=== PATIENT | female | born 1990 | race Caucasian/White ===

== ENCOUNTER 2016-07-02 11:22 | Emergency (ER) | payer SELFPAY ==
[2016-07-02] MEDS ORDERED: PROZAC20 M3 PO (11:33)
[2016-07-02] MEDS ORDERED: XANAX1 M1 PO (11:33)
[2016-07-02] MEDS ORDERED: TRAMADOL HCL50 M2 PO (12:58)
[2016-07-02] MEDS ORDERED: NORCO 5-325 TA1 EACH PO (13:13)
== END 2016-07-02 13:16 ==
LOC: EDMED 11:22
DX: S80.01XA Contusion of right knee, initial encounter (principal); F17.210 Nicotine dependence, cigarettes, uncomplicated; W10.9XXA Fall (on) (from) unspecified stairs and steps, initial encounter; Y92.019 Unspecified place in single-family (private) house as the place of occurrence of the external cause

== ENCOUNTER 2016-08-03 19:48 | Emergency (ER) | payer SELFPAY ==
[~2016-08-03 19:48] MED LIST: NORCO 5-325 TA1 EACH PO; PROZAC20 M3 PO; TRAMADOL HCL50 M2 PO; XANAX1 M1 PO
[2016-08-03] MEDS ORDERED: NO HOME MEDICATION XX (21:04)
== END 2016-08-03 22:06 ==
LOC: EDMED 19:48
DX: S06.0X0A Concussion without loss of consciousness, initial encounter (principal); S00.33XA Contusion of nose, initial encounter; R04.0 Epistaxis; F17.200 Nicotine dependence, unspecified, uncomplicated; V29.00XA Motorcycle driver injured in collision with unspecified motor vehicles in nontraffic accident, initial encounter; Y92.410 Unspecified street and highway as the place of occurrence of the external cause